=== PATIENT | male | born 1975 | race Asian ===

== ENCOUNTER 2018-09-27 08:39 | Emergency (ER) | payer MEDICAID ==
[~2018-09-27] VITALS: Ht 188 cm; Wt 77.6 kg
[2018-09-27 08:45] VITALS: BP 117/71
--- NOTE | 2018-09-27 08:56 | NUR ---
PATIENT PRESENTS TO ED WITH THE CHIEF C/O ABDOMINAL PAIN SINCE YESTERDAY AFTER HE ATE BURGER FROM [employer]. ABDOMEN SOFT, ROUND AND TENDER. ACTIVE BOWEL SOUND. PT HAS NAUSEA AND DIARRHEA; SKIN IS PINK/WARM/DRY; AAOX4 WITH EVEN AND STEADY GAIT; PT DENIES ANY FEVER, CP, SOB, OR COUGH AT THIS TIME; PATIENT STATES PAIN OF 10/10 AT THIS TIME; VSS; PATIENT POSITIONED FOR COMFORT; HOB ELEVATED; BEDRAILS UP X2; BED DOWN. ER MD MADE AWARE OF PT STATUS.
--- NOTE | 2018-09-27 09:04 | NUR ---
PT BEING SEEN BY DR. CROWLEY AT THIS TIME.
[2018-09-27] MEDS ORDERED: ONDANSETRON 4 MG ODT PO ONE (09:05)
[2018-09-27] MEDS ORDERED: KETOROLAC 60 MG/2 ML VIAL IM ONE (09:05)
--- NOTE | 2018-09-27 09:41 | NUR ---
NO C/O PAIN AT THIS TIME.
--- NOTE | 2018-09-27 10:12 | NUR ---
NO VOMITING AND DIARRHEA NOTED TILL THIS TIME. PT DENIES NAUSEA, ABDOMINAL PAIN.
[2018-09-27 10:15] VITALS: BP 117/58
--- NOTE | 2018-09-27 10:15 | NUR ---
Patient discharged with v/s stable. Written and verbal after care instructions given and explained. Patient alert, oriented and verbalized understanding of instructions. Ambulatory with steady gait. All questions addressed prior to discharge. ID band removed. Patient advised to follow up with PMD. Rx of MOTRIN, ZOFRAN AND IMODIUM given. Patient educated on indication of medication including possible reaction and side effects. Opportunity to ask questions provided and answered.
== END 2018-09-27 10:15 | disposition home or self-care (01) ==
LOC: MED 08:39
DX: R10.84 Generalized abdominal pain (principal); R11.2 Nausea with vomiting, unspecified; R19.7 Diarrhea, unspecified; F17.200 Nicotine dependence, unspecified, uncomplicated
CPT/HCPCS: 96372; 99283; J1885; Q0162

== ENCOUNTER 2019-03-27 16:31 | Inpatient (IN) | payer MEDICAID ==
[~2019-03-27] VITALS: Ht 188 cm; Wt 74.4 kg
[2019-03-27 16:33] VITALS: BP 117/77
--- NOTE | 2019-03-27 16:33 | NUR ---
Note undone in EDM - 03/27/19 at 1905 by MED BIBA. PER EMS, PT HAD A SUDDEN ONSET OF MID CHEST PAIN RADIATING TO L ARM LASTING 2 MINS X2 TODAY. PT IS AAO X4, GCS 15, FULL CLEAR SPEECH, FACIAL SYMMETRICAL, NO FACIAL DROOPING, PERRLA BRISK 3 MM, EQUAL AYESHA STRENGTH TO UPPER AND LOWER EXTREMITIES. PT DENIES CHEST PAIN, SOB AT THIS TIME. PT PLACED ON FULL REFINERY OPERATOR POLYMERIZATION PLANT. HOB UP. BED SIDE RAILS UP X1. ON LOW BED POSITION, LOCKED. DR RAO AT BEDSIDE.
--- NOTE | 2019-03-27 16:33 | NUR ---
BIBA. PER EMS, PT HAD A SUDDEN ONSET OF MID CHEST PAIN RADIATING TO L ARM LASTING 2 MINS X2 TODAY. PER EMS, 324 MG ASPIRIN AND NITRO 0.4 SL X1 WAS GIVEN ON THE FIELD. PT IS AAO X4, GCS 15, FULL CLEAR SPEECH, FACIAL SYMMETRICAL, NO FACIAL DROOPING, PERRLA BRISK 3 MM, EQUAL AYESHA STRENGTH TO UPPER AND LOWER EXTREMITIES. PT DENIES CHEST PAIN, SOB AT THIS TIME. PT PLACED ON FULL LOG DATA TECHNICIAN. HOB UP. BED SIDE RAILS UP X1. ON LOW BED POSITION, LOCKED. DR RAO AT BEDSIDE.
[2019-03-27] MEDS ORDERED: NITROGLYCERIN 2% 1 GM PKT TP ONE (16:40)
--- NOTE | 2019-03-27 16:50 | NUR ---
PT UNABLE TO GIVE URINE SPECIMEN AT THIS TIME.
--- NOTE | 2019-03-27 16:51 | NUR ---
PT WAS GIVEN A CUP OF WATER. PT TOLERATED WELL.
--- NOTE | 2019-03-27 16:58 | NUR ---
DR RAO AT BEDSIDE FOR PT EVALUATION
[2019-03-27 16:59] LABS: BASOPHILS % (AUTO) 0.7 % (0.0-2.0); EOSINOPHILS % (AUTO) 0.9 % (0.0-4.0); HEMOGLOBIN 14.9 g/dL (12.0-18.0); LYMPHOCYTES # (AUTO) 2.1 K/uL (2.0-11.5); LYMPHOCYTES % (AUTO) 41.6 % (20.5-51.1); MEAN CORPUSCULAR HEMOGLOBIN 31 pg (27-31); MEAN CORPUSCULAR HGB CONC 34 g/dL (33-37); MEAN CORPUSCULAR VOLUME 90.5 fL (80-94); MONOCYTES # (AUTO) 0.5 K/uL (0.8-1.0); MONOCYTES % (AUTO) 9.1 % (1.7-9.3); NEUTROPHILS # (AUTO) 2.4 K/uL (1.8-7.7); NEUTROPHILS % (AUTO) 47.7 % (42.2-75.2); PLATELET COUNT (AUTO) 253 K/uL (140-450); RED BLOOD CELL COUNT(AUTO) 4.86 MIL/uL (4.20-6.10); RED CELL DISTRIBUTION WIDTH 12.8 % (11.6-13.7); WHITE BLOOD COUNT (AUTO) 5.1 K/uL (4.8-10.8)
--- NOTE | 2019-03-27 17:02 | NUR ---
RADIOLOGY AT BEDSIDE.
--- NOTE | 2019-03-27 17:15 | NUR ---
PT AAO X4. FULL CLEAR SPEECH. VSS. PT DENIES CHEST PAIN, SOB. ENSURED SAFETY. CALL LIGHT WITHIN REACH. WILL CONTINUE TO MONITOR.
[2019-03-27 17:17] LABS: ANION GAP 13.3 (8-16); CARBON DIOXIDE 25.3 mmol/L (21-32); CREATININE 0.9 mg/dL (0.7-1.3); POTASSIUM 3.6 mmol/L (3.5-5.1)
[2019-03-27 17:20] LABS: PROTHROMBIN TIME 9.8 secs (10.8-13.4)
[2019-03-27 17:24] LABS: ALBUMIN 4.6 g/dL (3.4-5.0); TOTAL BILIRUBIN 0.3 mg/dL (0.0-1.0)
--- NOTE | 2019-03-27 17:30 | NUR ---
PT'S CO WORKER AT BEDSIDE. PT CONVERSATING APPROPRIATELY. WILL CONTINUE TO MONITOR.
--- NOTE | 2019-03-27 17:50 | NUR ---
PT IS UNABLE TO GIVE URINE AT THIS TIME.
--- NOTE | 2019-03-27 17:51 | NUR ---
PT GIVEN A CUP OF WATER. PT TOLERATED WELL.
--- NOTE | 2019-03-27 17:59 | NUR ---
Dr. Dubois evaluating patient at bedside.
[2019-03-27 18:06] LABS: D-DIMER < 100 ng/ml (0-400)
--- NOTE | 2019-03-27 18:06 | NUR ---
PT UNABLE TO VOID AT THIS TIME. PT REFUSED TO BE CATH.
--- NOTE | 2019-03-27 18:13 | NUR ---
URINE SPECIMEN OBTAINED. CALLED LAB FOR EMPLOYEE RELATIONS SPECIALIST.
--- NOTE | 2019-03-27 19:15 | NUR ---
Pt report given to ELAN Boucher. Transfer of care at this time.
--- NOTE | 2019-03-27 19:15 | NUR ---
RECEIVED REPORT FROM ELAN DAUGHERTY. ASSUMED CARE AT THIS TIME.
[2019-03-27] MEDS ORDERED: CLOPIDOGREL 75 MG TAB PO ONE (19:20)
[2019-03-27] MEDS ORDERED: ACETAMINOPHEN 325 MG TAB PO PRN (19:20)
[2019-03-27] MEDS ORDERED: HYDROcodone/APAP 7.5/325 MG 1 TAB PO PRN (19:20)
[2019-03-27] MEDS ORDERED: ASPIRIN 325 MG TAB PO ONE (19:20)
[2019-03-27] MEDS ORDERED: ONDANSETRON 4 MG/2 ML VIAL IVP PRN (19:20)
--- NOTE | 2019-03-27 19:37 | NUR ---
Patient will be admitted to care of Dr. Adler. Admited to [facility]. Will go to room 106B. Belongings list completed. VSS at time of transfer. Report to ELAN Hoffman. Transfer of care at this time.
[2019-03-27 19:40] VITALS: BP 96/64
--- NOTE | 2019-03-27 19:40 | NUR ---
RECEIVED BEDSIDE REPORT FROM ER NURSE. PATIENT IS AWAKE, ALERT, AND COOPERATIVE. CHIEF COMPLAINED CHEST PAIN. ADMITTING DIAGNOSIS CHEST PAIN. RESPIRATION EVEN UNLABORED ON ROOM AIR. NO DISTRESS NOTED. SKIN IS WARM AND DRY. DENIES PAIN. IV PATENT AND INTACT. LUNGS SOUNDS CLEAR ON AUSCULTATION. BOWEL SOUNDS PRESENT IN ALL 4 QUADRANTS. LAST BM 03/27/19. MRSA SCREEN DONE. VITALS WERE TAKEN. ORIENT PATIENT TO ROOM, STAFF, AND CALL LIGHT. PLAN OF CARE WAS DISCUSSED. FAMILY AT BEDSIDE. ALL SAFETY MEASURES IN PLACE. BED IS IN LOW POSITION. CALL LIGHT WITHIN REACH AND VERBALIZES ITS USE. WILL CONTINUE TO MONITOR.
[2019-03-27 19:45] LABS: FREE T4 (FREE THYROXINE) 0.92 ng/dL (0.76-1.46); PHOSPHORUS 2.6 mg/dL (2.5-4.9); THYROID STIMULATING HORMONE 3.27 uIU/mL (0.34-3.74)
[2019-03-27] MEDS: DOCUSATE SODIUM 100 MG GELCAP PO SCH (20:01)
[2019-03-27] MEDS ORDERED: NITROGLYCERIN 0.4 MG TAB SL PRN (20:25)
[2019-03-27] MEDS: METOPROLOL 25 MG TAB PO SCH (21:00)
--- NOTE | 2019-03-27 21:00 | NUR ---
ALL SCHEDULED MEDS WERE GIVEN PER ORDER. NO ASE NOTED. WILL CONTINUE TO MONITOR
[2019-03-27 21:28] LABS: APPEARANCE,URINE CLEAR (CLEAR); BILIRUBIN,URINE NEGATIVE (NEGATIVE); BLOOD, URINE NEGATIVE (NEGATIVE); COLOR,URINE YELLOW (YELLOW); LEUKOCYTE ESTERASE ,URINE NEGATIVE (NEGATIVE); NITRITE, URINE NEGATIVE (NEGATIVE); UGLUCOSE NEGATIVE (NEGATIVE)
[2019-03-27 21:34] LABS: BARBITURATE, URINE NEG. ng/ml (NEG <=200); BENZODIAZEPINE, URINE NEG. ng/mL (NEG <=200); CANNABINOID, URINE NEG. ng/mL (NEG <=50); COCAINE, URINE NEG. ng/mL (NEG <=300); OPIATE, URINE NEG. ng/mL (NEG <=2000); PHENCYCLIDINE SCREEN,URINE NEG. ng/mL (NEG <=25)
--- NOTE | 2019-03-27 23:00 | NUR ---
PATIENT SLEEPING RESPIRATION EVEN UNLABORED ON ROOM AIR. NO DISTRESS NOTED. WILL CONTINUE TO MONITOR.
[2019-03-27] MEDS ORDERED: NACL 0.9% 1,000 ML IV ONE (23:50)
[2019-03-28] VITALS: BP 88/52
--- NOTE | 2019-03-28 | NUR ---
PATIENT BLOOD PRESSURE TRENDING LOW. DR. HAYWOOD (RESIDENT) IS AWARE AND ORDERED 1L BOLUS. WILL CONTINUE TO MONITOR.
[2019-03-28] MEDS: NACL 0.9% 1,000 ML IV SCH ×2 (00:02→16:10)
--- NOTE | 2019-03-28 01:30 | NUR ---
RECHECKED PATIENT BLOOD PRESSURE. PT BLOOD PRESSURE 92/53 NO DISTRESS NOTED WILL CONTINUE TO MONITOR.
--- NOTE | 2019-03-28 02:00 | NUR ---
CHECKED PATIENT. PATIENT SLEEPING RESPIRATION EVEN UNLABORED ON ROOM AIR. NO DISTRESS NOTED. WILL CONTINUE TO MONITOR
[2019-03-28 04:00] VITALS: BP 90/53
--- NOTE | 2019-03-28 04:00 | NUR ---
VITALS WERE TAKEN. PATIENT CONDITION STABLE. NO DISTRESS NOTED. WILL CONTINUE TO MONITOR.
--- NOTE | 2019-03-28 04:30 | NUR ---
PATIENT COMPLAINED OF PAIN TO THE RIGHT AC IV. IV IS PATENT AND INTACT NO SIGN OF INFILTRATION. PER PATIENT REQUEST D/C IV. NO ACTIVE BLEEDING SEEN. CANNULA INTACT.
--- NOTE | 2019-03-28 05:00 | NUR ---
LABS DRAWN AND SENT TO LAB.
[2019-03-28 06:23] LABS: BASOPHILS % (AUTO) 0.6 % (0.0-2.0); EOSINOPHILS # (AUTO) 0.1 K/uL (0-0.4); EOSINOPHILS % (AUTO) 1.2 % (0.0-4.0); HEMATOCRIT 35.6 % (36-52); LYMPHOCYTES # (AUTO) 2.3 K/uL (2.0-11.5); LYMPHOCYTES % (AUTO) 46.9 % (20.5-51.1); MEAN CORPUSCULAR HEMOGLOBIN 30 pg (27-31); MEAN CORPUSCULAR HGB CONC 34 g/dL (33-37); MONOCYTES # (AUTO) 0.5 K/uL (0.8-1.0); NEUTROPHILS % (AUTO) 41.3 % (42.2-75.2); PLATELET COUNT (AUTO) 218 K/uL (140-450); RED BLOOD CELL COUNT(AUTO) 3.95 MIL/uL (4.20-6.10); RED CELL DISTRIBUTION WIDTH 12.5 % (11.6-13.7); WHITE BLOOD COUNT (AUTO) 4.8 K/uL (4.8-10.8)
[2019-03-28 06:36] LABS: ANION GAP 11.1 (8-16); CARBON DIOXIDE 26.5 mmol/L (21-32); CREATININE 0.8 mg/dL (0.7-1.3); POTASSIUM 3.6 mmol/L (3.5-5.1)
[2019-03-28 06:40] LABS: MAGNESIUM 1.9 mg/dL (1.8-2.4); PHOSPHORUS 3.3 mg/dL (2.5-4.9)
[2019-03-28 07:13] LABS: CHOL/HDL RATIO 3.4 (1-4.5)
--- NOTE | 2019-03-28 07:21 | NUR ---
ENDORSED PATIENT TO DAY SHIFT NURSE FOR CONTINUITY OF CARE. PATIENT CONDITION IS STABLE.
--- NOTE | 2019-03-28 07:23 | NUR ---
RECEIVED BEDSIDE REPORT FROM MIGRATION AGENT NURSE FOR CONTINUITY OF CARE. PATIENT IS RESTING ON BED AT THIS TIME. PATIENT IS AAOX4. DENIES ANY PAIN. RESPIRATION EVEN AND UNLABORED ON RA. NO SIGNS OF DISTRESS NOTED. IV ON ON LFA 20G, INTACT AND CLEAN , INFUSING PER MD ORDER. SKIN INTACT AND DRY. PATIENT IS ABLE TO AMBULATE. DISCUSSED PLAN OF CARE WITH PATIENT AND PATIENT VERBALIZED OK. TELE MONITOR ATTACHED. BED IN LOW POSITION AND CALL LIGHT WITHIN REACH.
[2019-03-28 08:00] VITALS: BP 96/58
[2019-03-28] MEDS: IBUPROFEN 600 MG TAB PO SCH ×2 (08:14→11:39)
[2019-03-28] MEDS: DOCUSATE SODIUM 100 MG GELCAP PO SCH ×2 (08:14→20:59)
[2019-03-28] MEDS: ECOTRIN 81 MG TABEC PO SCH (08:15)
[2019-03-28] MEDS: METOPROLOL 25 MG TAB PO SCH ×2 (08:17→21:00)
[2019-03-28] MEDS: LISINOPRIL 5 MG TAB PO SCH (08:17)
--- NOTE | 2019-03-28 08:22 | NUR ---
ADMINISTERED MEDS PER MD ORDER, PATIENT TOLERATED WELL. HOLD BP MEDS LISINOPRIL AND METOPROLOL DUE TO LOW BP 96/58, NOTIFIED DR CROCKETT AND DR CROCKETT AGREED AND AWARE. EDUCATED PATIENT ON MEDICATION REGIMEN, AND PATIENT WAS ACKNOWLEDGED AND AWARE OF BP MEDS WAS HOLD DUE TO HIS LOW BP. PATIENT DENIES PAIN AND ANY DIZZINESS. PATIENT IS SITTING UP ON BED AND PLAYING ON HIS PHONE. TELE MONITOR ATTACHED. SAFETY MEASURES IN PLACE. INSTRUCTED PATIENT TO USE THE CALL LIGHT FOR ANY ASSISTANCE AND PATIENT WAS AWARE.
--- NOTE | 2019-03-28 09:35 | NUR ---
ASSISTED PATIENT TO GO THE BATHROOM AND GOT BACK ON BED. PATIENT DENIES PAIN AND SOB. NO SIGNS OF DISTRESS NOTED. TELE MONITOR ATTACHED. SAFETY MEASURES IN PLACE. BED ALARM ACTIVATED. INSTRUCTED PATIENT TO USE THE CALL LIGHT FOR ANY ASSISTANCE AND PATIENT WAS AWARE.
--- NOTE | 2019-03-28 11:14 | NUR ---
PATIENT IS AWAKE AND LYING ON BED. DENIES PAIN AND DIZZINES. STRONG NITRIC OPERATOR IS BY BEDSIDE AND PERFORMING ECHOCARDIOGRAM. NO SIGNS OF DISTRESS NOTED. TELE MONITOR ATTACHED. BED IN LOW POSITION AND CALL LIGHT WITHIN REACH. INSTRUCTED PATIENT TO USE THE CALL LIGHT FOR ANY ASSISTANCE AND PATIENT WAS AWARE.
[2019-03-28 12:00] VITALS: BP 104/54
[2019-03-28] MEDS ORDERED: IBUPROFEN 600 MG TAB PO PRN (12:40)
--- NOTE | 2019-03-28 13:09 | NUR ---
PATIENT IS AWAKE AND SITTING UP ON BED. PATIENT IS TALKING TO VISITOR ROLF AT BEDSIDE. DENIES PAIN AND DIZZINESS. NO SIGNS OF DISTRESS NOTED. TELE MONITOR ATTACHED. BED IN LOW POSITION AND CALL LIGHT WITHIN REACH. INSTRUCTED PATIENT TO USE THE CALL LIGHT FOR ANY ASSISTANCE AND PATIENT WAS AWARE.
--- NOTE | 2019-03-28 15:12 | NUR ---
PATIENT IS RESTING ON BED. DENIES PAIN AND SOB. NO SIGNS OF DISTRESS NOTED. TELE MONITOR IN PLACE. BED IN LOW POSITION AND CALL LIGHT WITHIN REACH.
[2019-03-28 16:00] VITALS: BP 114/70
--- NOTE | 2019-03-28 17:16 | NUR ---
PATIENT CAME BACK FROM SHOWER. HE IS SITTING UP ON BED AND TALKING TO VISITORS AT BEDSIDE. DENIES PAIN, LIGHTHEADEDNESS AND SOB.R NO SIGNS OF DISTRESS NOTED.
--- NOTE | 2019-03-28 18:21 | NUR ---
PATIENT IS SITTING UP ON BED AND TALKING TO VISITORS AT BEDSIDE. DENIES PAIN, DIZZINESS AND SOB. NO SIGNS OF DISTRESS NOTED. TELE MONITOR IN PLACE. BED IN LOW POSITION AND CALL LIGHT WITHIN REACH.
--- NOTE | 2019-03-28 19:18 | NUR ---
ENDORSED PATIENT AT BEDSIDE TO BI LEAD NURSE FOR CONTINUITY OF CARE. PATIENT IS TALKING TO FAMILY AT BEDSIDE THIS TIME. PATIENT IS IN STABLE CONDITION. BED IN LOW POSITION AND CALL LIGHT WITHIN REACH.
--- NOTE | 2019-03-28 19:19 | NUR ---
RECEIVED REPORT FROM DAY SHIFT NURSE FOR CONTINUITY OF CARE. PATIENT IS AWAKE, ALERT, SITTING UP IN BED WITH FAMILY MEMBERS AT BEDSIDE. PATIENT IS IN STABLE CONDITION. DENIES PAIN AT THIS TIME. WILL CONTINUE TO MONITOR PATIENT.
[2019-03-28 20:00] VITALS: BP 108/69
--- NOTE | 2019-03-28 20:00 | NUR ---
VITAL SIGNS TAKEN. WITHHELD BLOOD PRESSURE MEDICATION. PATIENT HAS INTERMITTENT LOW BLOOD PRESSURE.
--- NOTE | 2019-03-28 22:30 | NUR ---
PATIENT LYING DOWN, APPEARS TO BE ASLEEP, WITH NO SIGNS OF DISTRESS. WILL CONTINUE TO MONITOR PATIENT.
[2019-03-29] VITALS: BP 90/48
--- NOTE | 2019-03-29 00:10 | NUR ---
PATIENT IS LYING DOWN, ASLEEP. VITAL SIGNS TAKEN. PATIENT DENIES PAIN AT THIS TIME. BED IS IN LOW POSITION, SIDE RAILS ARE UP, RE-INFORMED PATIENT USE OF CALL LIGHT WHEN NEEDED. WILL CONTINUE TO MONITOR PATIENT.
--- NOTE | 2019-03-29 02:00 | NUR ---
MADE ROUNDS, PATIENT LYING DOWN, ASLEEP, WITH NO SIGNS OF DISTRESS. WILL CONTINUE TO MONITOR PATIENT.
[2019-03-29 04:00] VITALS: BP 102/58
--- NOTE | 2019-03-29 04:10 | NUR ---
PATIENT LYING DOWN, ASLEEP. VITAL SIGNS TAKEN AND CHARTED. PATIENT DENIES PAIN AT THIS TIME. WILL CONTINUE TO MONITOR PATIENT.
--- NOTE | 2019-03-29 06:00 | NUR ---
PATIENT AWAKE, SITTING UP IN BED WATCHING TV. DENIES PAIN AT THIS TIME. WILL CONTINUE TO MONITOR PATIENT
--- NOTE | 2019-03-29 06:29 | NUR ---
PATIENT HAS BEEN SCREENED AND CATEGORIZED MODERATE NUTRITION RISK. PATIENT WILL BE SEEN WITHIN 3-5 DAYS OF ADMISSION. 03/29/19-03/31/19 AMILCAR PINTO MS, RDN
--- NOTE | 2019-03-29 07:05 | NUR ---
PT SLEEPING, NO SIGNS OF DISTRESS, REPORT GIVEN TO ELAN BERGER FOR CONTINUITY OF CARE.
--- NOTE | 2019-03-29 07:05 | NUR ---
RECEIVED BEDSIDE REPORT FROM CLEAT LAYER NURSE FOR CONTINUITY OF CARE. PATIENT IS RESTING ON BED AT THIS TIME. AROUSABLE BY VOICE. PATIENT IS AAOX4. DENIES ANY PAIN. RESPIRATION EVEN AND UNLABORED ON RA. NO SIGNS OF DISTRESS NOTED. IV ON ON LFA 20G, INTACT AND CLEAN , SL. SKIN INTACT AND DRY. PATIENT IS ABLE TO AMBULATE. DISCUSSED PLAN OF CARE WITH PATIENT AND PATIENT VERBALIZED OK. PATIENT SAID, " I WILL CALL TO FIND OUT WHAT TIME MY FAMILY IS ABLE TO PICK ME UP. I WILL LET YOU KNOW TL." TELE MONITOR ATTACHED. BED IN LOW POSITION AND CALL LIGHT WITHIN REACH. INSTRUCTED PATIENT TO USE THE CALL LIGHT FOR ANY ASSISTANCE AND PATIENT WAS AWARE.
[2019-03-29 08:00] VITALS: BP 113/76
[2019-03-29] MEDS: ECOTRIN 81 MG TABEC PO SCH (08:27)
[2019-03-29] MEDS: DOCUSATE SODIUM 100 MG GELCAP PO SCH (08:27)
[2019-03-29] MEDS: METOPROLOL 25 MG TAB PO SCH (08:27)
[2019-03-29] MEDS: LISINOPRIL 5 MG TAB PO SCH (08:27)
--- NOTE | 2019-03-29 08:29 | NUR ---
ADMINISTERED MEDS PER MD ORDER, PATIENT TOLERATED WELL. HOLD BP MEDS DUE TO LOW BP. DENIES PAIN AND DIZZINESS. PATIENT IS SITTING UP ON BED AND LOOKING AT HIS PHONE. PATIENT SAID, " I AM STILL WAITING FOR MY SON TO GET BACK TO ME ABOUT THE SECONDARY EDUCATION PROFESSOR TIME. IF HE IS NOT ABLE TO PICK ME UP, I WILL TAKE THE UBER SINCE I LIVE NEARBY." INFORMED PATIENT THAT DISCHARGE PAPER WILL BE PREPARED. TELE MONITOR IN PLACE. SAFETY MEASURES IN PLACE.
--- NOTE | 2019-03-29 08:50 | NUR ---
PER PATIENT, HE WILL TAKE THE UBER HOME SINCE NO ONE IS AVAILABLE TO PICK HIM UP. PATIENT IS AAOX4, ABLE TO COMMUNICATE APPROPRIATELY. PATIENT IS ABLE TO STATE HIS ADDRESS.
--- NOTE | 2019-03-29 09:05 | NUR ---
DR CROCKETT IS PROVIDING DISCHARGE EDUCATION TO PATIENT AT BEDSIDE. PATIENT VERBALIZED UNDERSTANDING AND WILL FOLLOW UP WITH MD AFTER D/C.
--- NOTE | 2019-03-29 09:15 | NUR ---
DISCHARGE INSTRUCTION PROVIDED TO PATIENT AT BEDSIDE. EDUCATED PATIENT ON MD FOLLOW UP, DISEASE MANAGEMENT, MEDICATION REGIMEN, SIDE EFFECTS, AND DIET REGIMEN. ANSWERED ALL PATIENT'S QUESTION AND PATIENT VERBALIZED UNDERSTANDING. REMOVED ALL ARM BANDS. D/C IV AND CANNULA INTACT, MINIMAL BLEEDING AT IV SITE. REMOVED TELE MONITOR. PATIENT CHANGED INTO HIS OWN CLOTHES. PATIENT CHECKED ALL THE CABINETS AND TOOK ALL HIS BELONGINGS. DISCHARGE PACKET PROVIDED TO PATIENT. PATIENT IS GOING TO DISCHARGE AT THIS TIME IN STABLE CONDITION.
[2019-03-29 10:09] LABS: ANION GAP 14.4 (8-16); CARBON DIOXIDE 26.1 mmol/L (21-32); CREATININE 0.9 mg/dL (0.7-1.3); POTASSIUM 3.5 mmol/L (3.5-5.1)
== END 2019-03-29 09:15 | disposition home or self-care (01) | DRG 203 ==
LOC: MED 16:31 → MTU 19:20
PROVIDERS: ADMIT General Practice; ATTEND General Practice
DX: M94.0 Chondrocostal junction syndrome [Tietze] (principal); F17.200 Nicotine dependence, unspecified, uncomplicated; R00.1 Bradycardia, unspecified; Z71.6 Tobacco abuse counseling
CPT/HCPCS: 36415; 71045; 80048; 80053; 80305; 81003; 82150; 82550; 83036; 83690; 83735; 83880; 84100; 84439; 84443; 84484; 85025; 85379; 85610; 85651; 85730; 86140; 87081; 93005; 99285; J1644; J7030; Q0092

== ENCOUNTER 2019-03-29 19:38 | Emergency (ER) | payer MEDICAID ==
[~2019-03-29] VITALS: Ht 188 cm; Wt 72.6 kg
[2019-03-29 19:40] VITALS: BP 110/73
--- NOTE | 2019-03-29 19:42 | NUR ---
TO LOBBY A/W BED AMBULATORY
--- NOTE | 2019-03-29 19:59 | NUR ---
PT TAKEN TO BED 1
--- NOTE | 2019-03-29 20:10 | NUR ---
PATIENT PRESENTS TO ED WITH C/O DIZZINESS. PT STATES HE WAS SEEN HERE THIS MORNING AND WAS DISCHARGED AT APPROX 10AM. DENIES N/V; AAOX4. PUPILS EQUAL AND REACTIVE TO LIGHT BILATERALLY. SPEECH NORMAL FOR PT. BILATERAL HAND DAIRY TESTER EQUAL. BILATERAL FOOT PUSH EQUAL. PATIENT STATES PAIN OF 0/10 AT THIS TIME; VSS; PATIENT POSITIONED FOR COMFORT; HOB ELEVATED; BEDRAILS UP X1; BED DOWN. ER MD TO EVALUATE PT.
[2019-03-29 20:41] VITALS: BP 110/72
== END 2019-03-29 20:42 | disposition home or self-care (01) ==
LOC: MED 19:38
DX: R42 Dizziness and giddiness (principal); R03.0 Elevated blood-pressure reading, without diagnosis of hypertension
CPT/HCPCS: 99282